=== PATIENT | female | born 1950 | race Caucasian/White ===

== ENCOUNTER 2016-07-22 15:13 | Inpatient (IN) | payer OTHER ==
[~2016-07-22] VITALS: Ht 154.9 cm; Wt 80.7 kg
[~2016-07-22 15:13] MED LIST: AMBIEN10 MG PO; CELEBREX200 MG PO; CEPHALEXIN500 M2 PO; COLACE100 M1 PO; COLACE250 MG PO; FERROUS SULFAT325 MG PO; GLUCOPHAGE1000 MG PO; LACTINEX1 TAB.CHEW PO; LASIX20 MG PO; LIORESAL10 MG PO; MORPHINE SULFAT30 M1 PO; MOTRIN800 MG PO; MS-CONTIN30 MG PO; NEURONTIN400 MG PO; NORCO 10/325 MG1 TAB PO; NUCYNTA ER100 MG PO; OMEPRAZOLE20 MG PO; OMEPRAZOLE40 MG PO; PAMELOR25 M1 PO; PEPCID20 MG PO; SEROQUEL50 MG PO; TEGRETOL200 MG PO; VASOTEC20 MG PO; ZOCOR40 MG PO
--- NOTE | 2016-07-22 15:13 | NUR ---
Patient BIBA ACLS, triaged by RN. Waiting for an available bed.
[2016-07-22 15:18] VITALS: BP 102/75
--- NOTE | 2016-07-22 16:00 | NUR ---
Dr. Haque evaluating patient while still on the ambulance gurney in [place].
[2016-07-22] MEDS ORDERED: NACL 0.9% 1,000 ML IV SCH (16:04)
--- NOTE | 2016-07-22 16:48 | NUR ---
Patient transferred to bed 6. RN evaluating patient at bedside.
--- NOTE | 2016-07-22 16:55 | NUR ---
PT CAME TO ER DUE TO GEN WEAKNESS WITH DIZZINESS WHEN STANDING STARTING THIS MORNING;PT DENIES CP/SOB/N/V/F.PAIN SCALE OF 9/10 DUE TO PAST SURGERY AT THE BACK;HX OF HTN;DM;DEPRESSION;AAOX4;NO ACUTE DISTRESS NOTED;HOB ELEVATED;NEEDS ATTENDED;SAFETY MEASURES DONE;ALL MONITORS IN PLACED.
[2016-07-22] MEDS ORDERED: SODIUM POLYSTYRENE 15 GM/60 ML UDBTL PR ONE (17:30)
[2016-07-22] MEDS ORDERED: DEXTROSE 50% 50 ML SYR IVP ONE (17:30)
[2016-07-22] MEDS ORDERED: FUROSEMIDE 100 MG in DEXTROSE 5% 100 ML IV ONE (17:30)
[2016-07-22] MEDS ORDERED: INSULIN HUMAN REGULAR 100 UNITS/ML 10 ML VIAL IVP ONE (17:30)
[2016-07-22] MEDS ORDERED: CALCIUM CHLORIDE 10% 1,000 MG in NACL 0.9% 100 ML IV ONE (17:30)
[2016-07-22] MEDS ORDERED: FUROSEMIDE 100 MG/10 ML VIAL IVP ONE (17:30)
[2016-07-22] MEDS ORDERED: FUROSEMIDE 100 MG/10 ML VIAL ONE (17:55)
[2016-07-22] MEDS ORDERED: SODIUM BICARBONATE 8.4% 50 MEQ/50 ML VIAL ONE (17:56)
[2016-07-22] MEDS ORDERED: CALCIUM CHLORIDE 10% 100 MG/ML SYR IVP ONE (18:20)
--- NOTE | 2016-07-22 18:20 | NUR ---
IV RT.HAND SWOLLEN/IV DISCONTINUED. PER PATIENT,RT. ARM SWOLLEN FROM PREVIOUS IV INFILTRATION FROM [facility]. ERMD MADE AWARE.
[2016-07-22] MEDS ORDERED: SODIUM BICARBONATE 8.4% PFS 50 MEQ/50 ML SYR IVP ONE (18:22)
--- NOTE | 2016-07-22 18:30 | NUR ---
STILL ATTEMPTING TO START IV LINE,PATIENT HARD STICK
[2016-07-22] MEDS ORDERED: ONDANSETRON 4 MG/2 ML VIAL IVP PRN (18:45)
--- NOTE | 2016-07-22 18:55 | NUR ---
Patient taken to CT scan via gurney by [employer].
[2016-07-22] MEDS ORDERED: DEXTROSE 50% 50 ML SYR IVP PRN (19:05)
[2016-07-22] MEDS ORDERED: INSULIN LISPRO SLIDING SCALE 100 UNITS/ML VIAL SUBQ PRN (19:05)
--- NOTE | 2016-07-22 19:33 | NUR ---
Patient will be admitted to care of DR TUCKER. Admited to TELE. Will go to [id number]. Belongings list completed. Report to LEYDI STEVE.
[2016-07-22] MEDS: SODIUM BICARBONATE 8.4% 100 MEQ in DEXTROSE 5% 1,000 ML IV SCH ×2 (20:10→20:15)
[2016-07-22 20:40] VITALS: BP 143/56
--- NOTE | 2016-07-22 20:40 | NUR ---
Admitted from E.. with chief complaint of GENERALIZED WEAKNESS. A 65 y/o ,Female, Appropriate. ALERT AWAKE ORIENTED X4. INITIAL ASSESSMENT DONE. NO S/S OF RESPIRATORY DISTRESS OR SOB NOTED. C/O BACK PAIN SCALING 7/10. WILL GIVE PRN PAIN MEDICATION ORDERED. SKIN IS INTACT CLEAN DRY AND WARM TO TOUCH. SCAR FROM SURGICAL INCISION NOTED ON THE BACK. PLAN OF CARE REVIEWED TO PT AND VERBALIZED UNDERSTANDING. oriented to call light, bed, phone,television, bathroom, smoking policy, visiting hours, procedures, ID bracelet on. Belongings list checked. CALL LIGHT WITHIN REACH. WILL CONTINUE TO MONITOR.
--- NOTE | 2016-07-22 21:40 | NUR ---
PLAN OF CARE ENDORSED TO ABDIRAHMAN RN AT BEDSIDE FOR CONTINUITY OF CARE.
--- NOTE | 2016-07-22 21:45 | NUR ---
IV ACCESS ON THE LT AC#22 INFILTRATED . DISCONTINUED THEN STARTED A NEW IV ACCESS LT WRIST #22. CLEAR AND PATENT.
[2016-07-22] MEDS: NACL 0.9% 1,000 ML IV SCH (22:00)
[2016-07-22] MEDS: BLOOD GLUCOSE MONITORING 1 DEV DEV FS SCH (22:30)
--- NOTE | 2016-07-22 22:30 | NUR ---
BLOOD SUGAR WAS CHECKED RESULT 70. PT IS AWAKE,ALERT AND ORIENTED. PROVIDED SOME APPLE JUICE AND REQUESTING FOR SOME SANDWICH. WILL CONTINUE TO MONITOR.
[2016-07-22] MEDS: SIMVASTATIN 40 MG TAB PO SCH (22:37)
[2016-07-22] MEDS: QUEtiapine FUMARATE 25 MG TAB PO SCH (22:38)
[2016-07-22] MEDS: FERROUS SULFATE 325 MG TABEC PO SCH (22:38)
[2016-07-22] MEDS: NORTRIPTYLINE 25 MG CAP PO SCH (22:38)
[2016-07-22] MEDS: MORPHINE SULFATE 2 MG/ML SYR IVP PRN (22:49)
--- NOTE | 2016-07-22 23:45 | NUR ---
PT HAD 1/2 SANDWICH AND SOME MORE APPLE JUICE.
[2016-07-23] VITALS (11 sets, daily range): BP systolic 94–116; BP diastolic 48–79
--- NOTE | 2016-07-23 02:00 | NUR ---
SLEEPING WELL AT THIS TIME. NO S/S OF ANY DISCOMFORT NOR PAIN NOTED.
--- NOTE | 2016-07-23 03:00 | NUR ---
PT SAID OK TO RECHECK BLOOD SUGAR AT THIS TIME. RESULT 78. PT HAD SOME APPLE JUICE AND APPLE SAUCE.
--- NOTE | 2016-07-23 04:10 | NUR ---
MAGNESIUM LEVEL 1.4 ,PAGED DR. DE LA ROSA. CALLED BACK WITH ORDER.
[2016-07-23] MEDS ORDERED: MAG SULF 2000 MG/WATER PREMIX 50 ML IV ONE (04:15)
--- NOTE | 2016-07-23 05:43 | NUR ---
@ 0525 BLOOD SUGAR WAS CHECKED RESULT 65. PT IS AWAKE,ALERT AND ORIENTED X4. ASYMPTOMATIC. GIVEN SOME CRACKERS, AND JUICE. WILL RECHECK BLOOD SUGAR AGAIN AFTER 30 MINUTES.
[2016-07-23] MEDS: MORPHINE SULFATE 2 MG/ML SYR IVP PRN ×3 (06:01→18:44)
[2016-07-23] MEDS: BLOOD GLUCOSE MONITORING 1 DEV DEV FS SCH ×4 (06:24→20:42)
--- NOTE | 2016-07-23 06:24 | NUR ---
PT SAID NO MORE PAIN . BLOOD SUGAR WAS RECHECKED RESULT 120.
--- NOTE | 2016-07-23 07:30 | NUR ---
ENDORSED PT IN STABLE CONDITION TO AM NURSE.
--- NOTE | 2016-07-23 07:30 | NUR ---
RECEIVED BEDSIDE REPORT FROM NIGHT NURSE. AOX4, PT RESTING IN BED, ABLE TO VERBALIZE NEEDS. PT REPORTS NO PAIN AT THIS TIME. VAULT ATTENDANT IN PLACE. NO S/S OF CP, SOB OR ACUTE DISTRESS. IV SITE ASYMPTOMATIC, PATENT AND INTACT. IVF INFUSING WELL. REVIEWED AND DISCUSSED PLAN OF CARE WITH PT. PT VERBALIZES UNDERSTANDING. SAFETY MEASURES ENSURED. CALL LIGHT WITHIN REACH. WILL CONTINUE TO MONITOR.
[2016-07-23] MEDS ORDERED: ENALAPRIL 10 MG TAB PO SCH (09:00)
[2016-07-23] MEDS ORDERED: FAMOTIDINE 20 MG TAB PO SCH (09:00)
[2016-07-23] MEDS ORDERED: carBAMazepine 200 MG TAB PO SCH (09:00)
[2016-07-23] MEDS ORDERED: GABAPENTIN 100 MG CAP PO SCH (09:00)
[2016-07-23] MEDS: FUROSEMIDE 20 MG TAB PO SCH (09:00)
[2016-07-23] MEDS: FERROUS SULFATE 325 MG TABEC PO SCH ×2 (09:12→20:42)
[2016-07-23] MEDS: HYDROcodone/APAP 7.5/325 MG 1 TAB PO PRN ×2 (09:12→20:53)
[2016-07-23] MEDS: GABAPENTIN 300 MG CAP PO SCH (09:18)
[2016-07-23] MEDS: FAMOTIDINE 20 MG TAB PO SCH (09:19)
--- NOTE | 2016-07-23 09:21 | NUR ---
HELD VASOTEC AND LASIX DUE TO LOW BP PER MD. ADMINISTERED REMAINING MEDICATIONS WITH EDUCATION. PT VERBALIZES UNDERSTANDING. PT TOLERATED WELL. PT REPORTS PAIN ON BACK. SEE PAIN ASSESSMENT. MEDICATED ORDERED. ASSISTED PT WITH ADLS. PT ASSISTED TO CHANGE POSITIONS SLOWLY. SAFETY MEASURES ENSURED. CALL LIGHT WITHIN REACH. WILL CONTINUE TO MONITOR.
[2016-07-23] MEDS ORDERED: BACLOFEN 10 MG TAB PO SCH (10:05)
[2016-07-23] MEDS ORDERED: BACLOFEN 10 MG TAB PO PRN (10:05)
[2016-07-23] MEDS ORDERED: MORPHINE TAB ER 15 MG TABER PO SCH (10:30)
--- NOTE | 2016-07-23 10:50 | NUR ---
PT C/O PERSISTENT BACK PAIN. SEE PAIN ASSESSMENT. PLACED ICE PACK ON BACK AND PT REPOSITIONED. BACLOFEN ADMINISTERED ORDERED. MS CONTIN HELD DUE TO LOW BP 88/52. PT ASYMPTOMATIC, NO S/S OF ACUTE DISTRESS. WILL CONTINUE TO MONITOR PAIN AND BP.
[2016-07-23] MEDS: NACL 0.9% 1,000 ML IV SCH (11:21)
--- NOTE | 2016-07-23 12:10 | NUR ---
PT RESTING IN BED. ORTHOSTATIC VITAL SIGNS TAKEN. SEE VITAL SIGNS. PT TOLERATED WELL. NO S/S OF ACUTE DISTRESS. ASSISTED PT TO CHAIR, PT EATING. SAFETY MEASURES ENSURED. CALL LIGHT WITHIN REACH. WILL CONTINUE TO MONITOR.
--- NOTE | 2016-07-23 16:00 | NUR ---
PT RESTING IN BED. ALL NEEDS MET. SAFETY MEASURES IN PLACE. WILL CONTINUE TO MONITOR.
--- NOTE | 2016-07-23 19:23 | NUR ---
ENDORSED PLAN OF CARE TO NIGHT NURSE. CONDITION STABLE.
--- NOTE | 2016-07-23 19:30 | NUR ---
RECEIVED PT IN STABLE CONDITION FROM AM NURSE. AWAKE,ALERT AND ORIENTED X4. WITH NO ACUTE DISTRESS NOTED. ON TELE MONITOR. NO C/O PAIN AT THIS TIME. HAS IVF INFUSING WELL ON THE LT WRIST #22. CLEAR AND PATENT. HAS BSC , INSTRUCTED PT TO CALL FOR ASSISTANCE TO GET UP. PLAN OF CARE DISCUSSED AND VERBALIZED UNDERSTANDING. BED ON LOW POSITION. SIDE RIALS UP X2. CALL LIGHT PLACED WITHIN EASY REACH. WILL CONTINUE TO MONITOR.
--- NOTE | 2016-07-23 20:42 | NUR ---
BLOOD SUGAR WAS CHECKED RESULT 95. PROVIDED WITH SOME JUICE AND CRACKERS. WILL CONTINUE TO MONITOR.
[2016-07-23] MEDS: MORPHINE TAB ER 15 MG TABER PO SCH (20:43)
[2016-07-23] MEDS: NORTRIPTYLINE 25 MG CAP PO SCH (20:43)
[2016-07-23] MEDS: QUEtiapine FUMARATE 25 MG TAB PO SCH (20:44)
[2016-07-23] MEDS: SIMVASTATIN 40 MG TAB PO SCH (20:44)
--- NOTE | 2016-07-23 22:00 | NUR ---
SLEEPING AT THIS TIME. NO S/S OF ANY DISCOMFORT NOTED.
[2016-07-24] VITALS (8 sets, daily range): BP systolic 103–133; BP diastolic 59–75
--- NOTE | 2016-07-24 00:30 | NUR ---
MADE ROUNDS . SLEEPING WELL WITH NO S/S OF ANY DISCOMFORT NOR PAIN NOTED.
[2016-07-24] MEDS: NACL 0.9% 1,000 ML IV SCH ×3 (02:15→20:41)
[2016-07-24] MEDS: MORPHINE SULFATE 2 MG/ML SYR IVP PRN ×5 (02:23→20:55)
--- NOTE | 2016-07-24 02:23 | NUR ---
AWAKE, C/O BACK PAIN . MEDICATED ORDERED. WILL CONTINUE TO MONITOR.
--- NOTE | 2016-07-24 04:10 | NUR ---
PT REFUSED TO GET UP FOR SITING ANG STANDING UP VITAL SIGNS.
--- NOTE | 2016-07-24 04:20 | NUR ---
HAS BEEN ASSISTED TO BATHROOM. VOIDED WELL . C/O PAIN . WILL MEDICATE ORDERED.
[2016-07-24] MEDS: HYDROcodone/APAP 7.5/325 MG 1 TAB PO PRN ×3 (04:29→23:44)
[2016-07-24] MEDS: BLOOD GLUCOSE MONITORING 1 DEV DEV FS SCH ×4 (06:28→21:01)
--- NOTE | 2016-07-24 07:35 | NUR ---
ENDORSED PT IN STABLE CONDITION TO AM NURSE FOR CONTINUITY OF CARE.
--- NOTE | 2016-07-24 07:36 | NUR ---
ALERT AND ORIENTED X4, NO SIGNS OF ACUTE DISTRESS, BREATHING EVENLY AND UNLABORED ON ROOM AIR, SKIN WARM, DRY AND INTACT, ABDOMEN SOFT BOWEL SOUNDS PRESENT IN ALL 4 QUADRANTS, BOWEL AND BLADDER CONTINENCE, AMBULATORY WITH STANDBY ASSIST, PATIENT VERBALIZED PAIN IS BETTER WAS MEDICATED BY ROLL SHEETING CUTTER RN, IV PATENT WITH NO REDNESS, BED IN LOW POSITION WITH BILATERAL HALF SIDE RAILS UP, CALL LIGHT WITHIN REACH.
--- NOTE | 2016-07-24 07:59 | NUR ---
PATIENT HAS BEEN SCREENED AND CATEGORIZED MODERATE NUTRITION RISK. PATIENT WILL BE SEEN WITHIN 3-5 DAYS OF ADMISSION. 07/25/16-07/27/[address]
[2016-07-24] MEDS ORDERED: MAG SULF 2000 MG/WATER PREMIX 50 ML IV SCH (08:00)
[2016-07-24] MEDS: ECOTRIN 81 MG TABEC PO SCH (08:50)
[2016-07-24] MEDS: FERROUS SULFATE 325 MG TABEC PO SCH ×2 (08:50→20:56)
[2016-07-24] MEDS: MORPHINE TAB ER 15 MG TABER PO SCH ×2 (08:51→20:56)
[2016-07-24] MEDS: GABAPENTIN 300 MG CAP PO SCH (08:51)
[2016-07-24] MEDS: FAMOTIDINE 20 MG TAB PO SCH (08:52)
[2016-07-24] MEDS: FUROSEMIDE 20 MG TAB PO SCH (08:56)
[2016-07-24] MEDS ORDERED: MULTIVITAMIN 1 TAB PO SCH (09:11)
[2016-07-24] MEDS ORDERED: MAGNESIUM OXIDE 400 MG TAB PO SCH ×2 (10:00→14:00)
--- NOTE | 2016-07-24 16:06 | NUR ---
WAS SEEN BY DR. SNEED FOR PSYCH CONSULT. NEW ORDERS RECEIVED. NOTED AND CARRIED OUT.
--- NOTE | 2016-07-24 17:47 | NUR ---
NEW LAB ORDERS RECEIVED FROM DR. ARNETT. NOTED AND CARRIED OUT.
--- NOTE | 2016-07-24 19:20 | NUR ---
RECEIVED REPORT FROM MORNING SHIFT NURSE AT BEDSIDE, PT IS AAOX4. DEPRESSED, NO SOB/DISTRESS NOTED, BREATHING EVEN AND UNLABORED, CLEAR LUNG SOUNDS, ON RA. DENIES ANY CHEST PAIN, ON TELE MONITOR WITH SR. SOFT ABD WITH POSITIVE BOWEL SOUNDS TO 4 QUADRANTS. C/O PAIN TO LOWER BACK, HEATING PAD IN USE. AFEBRILE, SKIN INTACT, WARM AND DRY IN TOUCH. IV SITE TO RIGHT WRIST 20GA RUNNING WITH NS. ABLE TO MOVE ALL EXTREMITIES, GENERALIZED WEAKNESS NOTED, ABLE AMBULATORY WITH MINIMUM ASSIST. CONTINENT WITH B&B'S. VSS. EXPLAINED PLAN OF CARE TO PATIENT, SAFETY MEASURES MAINTAINED, CALL LIGHT WITHIN REACH, WILL CONTINUE TO MONITOR.
--- NOTE | 2016-07-24 19:20 | NUR ---
PT ALERT AND RESPONSIVE NO SIGNS OF ACUTE DISTRESS. ENDORSED TO ASSIGNED GRAPE PICKER RN FOR CONTINUITY OF CARE.
[2016-07-24] MEDS: QUEtiapine FUMARATE 25 MG TAB PO SCH (20:55)
[2016-07-24] MEDS: NORTRIPTYLINE 25 MG CAP PO SCH (20:55)
[2016-07-24] MEDS: SIMVASTATIN 40 MG TAB PO SCH (20:56)
--- NOTE | 2016-07-24 21:00 | NUR ---
SCHEDULED MEDICATION GIVEN, ACCU CHECK WITH 138MG/DL, NO INSULIN COVERAGE AT THIS TIME.
[2016-07-25] VITALS: BP 95/49
--- NOTE | 2016-07-25 | NUR ---
PT C/O SEVERE LOWER BACK PAIN, RESTLESSNESS, EDUCATED AND MEDICATED. VSS.
[2016-07-25] MEDS: MORPHINE SULFATE 2 MG/ML SYR IVP PRN ×3 (01:30→11:39)
[2016-07-25] MEDS: NACL 0.9% 1,000 ML IV SCH (01:31)
[2016-07-25 04:00] VITALS: BP 108/60
--- NOTE | 2016-07-25 04:00 | NUR ---
NO CHANGE OF CONDITION AT THIS TIME, VSS.
[2016-07-25] MEDS: BLOOD GLUCOSE MONITORING 1 DEV DEV FS SCH ×2 (06:36→11:38)
--- NOTE | 2016-07-25 07:05 | NUR ---
REPORT GIVEN TO MORNING SHIFT NURSE FOR CONTINUE OF CARE, PT IS IN STABLE CONDITION AT THIS TIME.
--- NOTE | 2016-07-25 07:06 | NUR ---
ALERT AND ORIENTED X4, NO SIGNS OF ACUTE DISTRESS, BREATHING EVEN AND UNLABORED BILATERALLY, ABDOMEN SOFT WITH BOWEL SOUNDS PRESENT IN ALL 4 QUADRANTS, SKIN WARM, DRY AND INTACT, BOWEL AND BLADDER CONTINENCE, AMBULATES WITH STANDBY ASSIST, COMPLAINS OF PAIN / DOESN'T WANT PAIN MEDICATION AT THIS TIME, BED IN LOW POSITION WITH BILATERAL HALF SIDE RAILS UP, CALL LIGHT WITHIN REACH.
[2016-07-25 07:44] VITALS: BP 124/61
[2016-07-25] MEDS ORDERED: MULTIVITAMIN 1 TAB PO SCH (09:00)
[2016-07-25] MEDS: FUROSEMIDE 20 MG TAB PO SCH (09:00)
[2016-07-25] MEDS: FAMOTIDINE 20 MG TAB PO SCH (09:08)
[2016-07-25] MEDS: GABAPENTIN 300 MG CAP PO SCH (09:08)
[2016-07-25] MEDS: MORPHINE TAB ER 15 MG TABER PO SCH (09:09)
[2016-07-25] MEDS: FERROUS SULFATE 325 MG TABEC PO SCH (09:09)
[2016-07-25] MEDS: HYDROcodone/APAP 7.5/325 MG 1 TAB PO PRN (09:10)
[2016-07-25] MEDS: ECOTRIN 81 MG TABEC PO SCH (09:10)
--- NOTE | 2016-07-25 09:27 | NUR ---
GAVE MAG BARBERER ORDERED PER DR SANDOVAL.
[2016-07-25] MEDS ORDERED: MAG SULF 2000 MG/WATER PREMIX 50 ML IV SCH (09:30)
[2016-07-25] MEDS ORDERED: LOPRESSOR25 MG PO (10:50)
[2016-07-25 12:00] VITALS: BP 149/71
--- NOTE | 2016-07-25 13:20 | NUR ---
PT AWAKE, ALERT AND ORIENTED X4, NO SIGNS OF ACUTE DISTRESS, PAIN LEVEL 1/10 ON LOWER BACK, AUGUST D/C HOME ORDERED. EDUCATED TO FOLLOW UP WITH PCP WITHIN 1 WEEK, PATIENT VERBALIZED UNDERSTANDING, WILL CONTINUE HOME MEDICATIONS ORDERED. WRIST BAND, TELE LEADS AND IV REMOVED. PICKED UP BY FRIEND. PERSONAL BELONGINGS WITH PATIENT UPON DISCHARGE, WHEELED TO FRONT LOBBY WILL GO HOME VIA PRIVATE AUTO.
== END 2016-07-25 13:20 | disposition home or self-care (01) | DRG 682 ==
LOC: MED 15:13 → MTU 18:50
PROVIDERS: ADMIT Student in an Organized Health Care Education/Training Program; ATTEND Student in an Organized Health Care Education/Training Program
DX: N17.0 Acute kidney failure with tubular necrosis (principal); G93.41 Metabolic encephalopathy; I50.43 Acute on chronic combined systolic (congestive) and diastolic (congestive) heart failure; E44.0 Moderate protein-calorie malnutrition; F33.0 Major depressive disorder, recurrent, mild; G90.9 Disorder of the autonomic nervous system, unspecified; R00.1 Bradycardia, unspecified; E87.5 Hyperkalemia; E11.65 Type 2 diabetes mellitus with hyperglycemia; E11.51 Type 2 diabetes mellitus with diabetic peripheral angiopathy without gangrene; E78.5 Hyperlipidemia, unspecified; E83.42 Hypomagnesemia; E03.9 Hypothyroidism, unspecified; E66.9 Obesity, unspecified; K21.9 Gastro-esophageal reflux disease without esophagitis; D64.9 Anemia, unspecified; I11.0 Hypertensive heart disease with heart failure; G89.29 Other chronic pain; M54.9 Dorsalgia, unspecified; Z82.3 Family history of stroke; Z71.3 Dietary counseling and surveillance; Z68.33 Body mass index [BMI] 33.0-33.9, adult; Z79.899 Other long term (current) drug therapy; Z83.3 Family history of diabetes mellitus

== ENCOUNTER 2016-09-15 17:48 | Emergency (ER) | payer OTHER ==
[~2016-09-15 17:48] MED LIST changes: -AMBIEN10 MG PO; -CELEBREX200 MG PO; -CEPHALEXIN500 M2 PO; -COLACE100 M1 PO; -COLACE250 MG PO; -FERROUS SULFAT325 MG PO; +FURO-572 PO; -GLUCOPHAGE1000 MG PO; +HYDR-4452 PO; -LACTINEX1 TAB.CHEW PO; -LASIX20 MG PO; -LIORESAL10 MG PO; +METF1000 PO; +METO25TA PO; +MORP30TA PO; -MORPHINE SULFAT30 M1 PO; -MOTRIN800 MG PO; -MS-CONTIN30 MG PO; +MSCON30 PO; -NEURONTIN400 MG PO; -NORCO 10/325 MG1 TAB PO; -NUCYNTA ER100 MG PO; +OMEP20EC6 PO; -OMEPRAZOLE20 MG PO; -OMEPRAZOLE40 MG PO; +PAM25 PO; -PAMELOR25 M1 PO; -PEPCID20 MG PO; +QUET50TA PO; -SEROQUEL50 MG PO; +SIMV40TA1 PO; -TEGRETOL200 MG PO; -VASOTEC20 MG PO; -ZOCOR40 MG PO
== END 2016-09-15 18:08 | disposition left against medical advice (07) ==
LOC: MED 17:48
DX: M54.9 Dorsalgia, unspecified (principal); Z53.21 Procedure and treatment not carried out due to patient leaving prior to being seen by health care provider

== ENCOUNTER 2016-09-17 19:48 | Emergency (ER) | payer OTHER ==
[~2016-09-17] VITALS: Ht 154.9 cm; Wt 72.6 kg
[2016-09-17 19:54] VITALS: BP 147/70
--- NOTE | 2016-09-17 20:17 | NUR ---
PT TAKEN TO BED 7
--- NOTE | 2016-09-17 20:50 | NUR ---
66Y/F PATIENT PRESENTS TO ED WITH C/O LOWER BACK PAIN . PT STATES HAVING CHRONIC BACK PAIN, HX. SCROLIOSIS, S/O LUMBAR FUSION, ON PERCUCET, TODAY PAIN INCREASES, HX. DM, HTN UNDER CONTAOLL. DENIES N/V/D; SKIN IS PINK/WARM/DRY; AAOX4 WITH EVEN AND STEADY GAIT USING WALKER; LUNGS CLEAR BL; HR EVEN AND REGULAR; PT DENIES ANY FEVER, CP, SOB, OR COUGH AT THIS TIME; PATIENT STATES PAIN OF 10/10 AT THIS TIME; VSS; PATIENT POSITIONED FOR COMFORT; HOB ELEVATED; BEDRAILS UP X2; BED DOWN. ER MD MADE AWARE OF PT STATUS.
--- NOTE | 2016-09-17 21:10 | NUR ---
Dr. Cramer evaluating patient at bedside.
[2016-09-17] MEDS ORDERED: KETOROLAC 60 MG/2 ML VIAL IM ONE (21:20)
[2016-09-17] MEDS ORDERED: HYDROmorphone 1 MG/ML AMP IVP ONE (21:20)
[2016-09-17 22:10] VITALS: BP 143/77
--- NOTE | 2016-09-17 22:10 | NUR ---
Patient discharged with v/s stable. Written and verbal after care instructions given and explained. Patient alert, oriented and verbalized understanding of instructions. Ambulatory with steady gait. All questions addressed prior to discharge. ID band removed. Patient advised to follow up with PMD. Rx of FLEXARIL 10 MG given. Patient educated on indication of medication including possible reaction and side effects. Opportunity to ask questions provided and answered.
== END 2016-09-17 22:10 | disposition home or self-care (01) ==
LOC: MED 19:48
DX: M54.5 Low back pain (principal); I10 Essential (primary) hypertension; G89.29 Other chronic pain
CPT/HCPCS: 96372; 96374; 99284; J1170; J1885

== ENCOUNTER 2017-03-27 14:33 | Emergency (ER) | payer OTHER ==
[~2017-03-27] VITALS: Ht 149.9 cm; Wt 69.9 kg
[~2017-03-27 14:33] MED LIST changes: +ACET-787 PO; -HYDR-4452 PO
[2017-03-27 14:40] VITALS: BP 132/86
--- NOTE | 2017-03-27 14:50 | NUR ---
66/M BIB SELF C/O PRODUCTIVE COUGH X 2 DAY, WORSE TODAY WITH "DIFFICULTLY BREATHING; PT ALSO REPORTS OF MID LOWER BACK PAIN X 1 MONTH. HX--DM, DEPRESSION, HTN, HYPERLIPIDEMIA, CHRONIC LOWER BACK PAIN.SKIN IS PINK/WARM/DRY; AAOX4 WITH EVEN AND UNSTEADY GAIT; LUNGS CLEAR BL; PATIENT STATES PAIN OF 10/10 AT THIS TIME; PATIENT POSITIONED FOR COMFORT; HOB ELEVATED; BEDRAILS UP X2; BED DOWN. ER MD MADE AWARE OF PT STATUS.
[2017-03-27 15:46] VITALS: BP 116/50
--- NOTE | 2017-03-27 15:46 | NUR ---
Patient discharged with v/s stable. Written and verbal after care instructions given and explained. Patient alert, oriented and verbalized understanding of instructions. Ambulatory with steady gait. All questions addressed prior to discharge. ID band removed. Patient advised to follow up with PMD. Rx of AZITHROMYCIN, PREDNISONE & NORCO given. Patient educated on indication of medication including possible reaction and side effects. Opportunity to ask questions provided and answered.
== END 2017-03-27 15:46 | disposition home or self-care (01) ==
LOC: MED 14:33
DX: M54.5 Low back pain (principal); R05 Cough; R06.02 Shortness of breath; E11.9 Type 2 diabetes mellitus without complications; I10 Essential (primary) hypertension; Z79.899 Other long term (current) drug therapy; Z79.84 Long term (current) use of oral hypoglycemic drugs
CPT/HCPCS: 81002; 99283

== ENCOUNTER 2017-04-21 17:27 | Emergency (ER) | payer OTHER ==
[~2017-04-21] VITALS: Ht 154.9 cm; Wt 68.7 kg
[2017-04-21 17:41] VITALS: BP 111/63
[2017-04-21] MEDS ORDERED: DEXT 5% / NACL 0.45% 500 ML IV ONE (17:55)
[2017-04-21] MEDS ORDERED: HYDROmorphone PFS 2 MG/ML SYR IVP ONE (17:55)
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
--- NOTE | 2017-04-21 18:09 | NUR ---
WASTED 1 MG HYDROMORPHONE HCL
--- NOTE | 2017-04-21 19:13 | NUR ---
REPORT GIVEN TO BENITO FOR CONTINUATION OF CARE
[2017-04-21 19:50] VITALS: BP 121/55
--- NOTE | 2017-04-21 19:50 | NUR ---
Patient discharged with v/s stable. Written and verbal after care instructions given and explained. Patient alert, oriented and verbalized understanding of instructions. Ambulatory with steady gait. All questions addressed prior to discharge. ID band removed. Patient advised to follow up with PMD. Rx of [place] given. Patient educated on indication of medication including possible reaction and side effects. Opportunity to ask questions provided and answered.
== END 2017-04-21 19:50 | disposition home or self-care (01) ==
LOC: MED 17:27
DX: G89.29 Other chronic pain (principal); M54.9 Dorsalgia, unspecified; E16.2 Hypoglycemia, unspecified; I10 Essential (primary) hypertension
CPT/HCPCS: 82948; 96361; 96374; 99285; J1170

== ENCOUNTER 2017-04-25 15:06 | Emergency (ER) | payer OTHER ==
[~2017-04-25] VITALS: Ht 154.9 cm; Wt 68.5 kg
[2017-04-25 15:18] VITALS: BP 123/73
--- NOTE | 2017-04-25 16:50 | NUR ---
PATIENT PRESENTS TO ED WITH C/O CHRONIC BACK PAIN; WAS RX PERCOCET AND STATES THAT SHE "IT'S MAKING ME SICK WITH DIARRHEA AND VOMITING." PT STATES "I USED TO TAKE NORCO AND THEY GAVE ME SOME OF THOSE AND THAT SEEM TO HELP." HX OF CHRONIC BACK PAIN, DM, HTN, HIGH CHOLESTEROL, DEPRESSION .DENIES N/V/D; SKIN IS PINK/WARM/DRY; AAOX4 WITH EVEN AND STEADY GAIT; LUNGS CLEAR BL; HR EVEN AND REGULAR; PT DENIES ANY FEVER, CP, SOB, OR COUGH AT THIS TIME; PATIENT STATES PAIN OF 9/10 AT THIS TIME;PATIENT POSITIONED FOR COMFORT; HOB ELEVATED; BEDRAILS UP X2; BED DOWN. ER MD MADE AWARE OF PT STATUS.
--- NOTE | 2017-04-25 17:42 | NUR ---
DR CACERES AT BEDSIDE.
[2017-04-25] MEDS ORDERED: KETOROLAC 60 MG/2 ML VIAL IM ONE (17:50)
--- NOTE | 2017-04-25 18:10 | NUR ---
PT REFUSED TO TAKE TORADOL 60 MG;PT STATES "THAT DON'T HELP ME"CAN YOU ASK THE DR IF HE CAN GIVE STRONGER PAIN MEDICATION";TALKED TO PT;ASKED IF SHE CAN GIVE IT A TRY FOR MEDICINE TO TAKE EFFECT;BUT PT STILL REFUSING MEDICINE"ER NOTIFIED;
--- NOTE | 2017-04-25 18:52 | NUR ---
PT REFUSED TO SIGN DISCHARGE PAPERS;PT APPEARS TO BE UPSET"PT STATES I'LL WAIT FOR ANOTHER DR"I WANNA TALKED TO THE RECLAMATION KETTLE TENDER OF THIS HOSPITAL"THAT MEDICINE DID NOT HELP ME"CHARGE NURSE NOTIFIED;PT REFUSED TO TAKE HER VS.
[2017-04-25 18:56] VITALS: BP 123/73
--- NOTE | 2017-04-25 18:56 | NUR ---
Patient discharged with v/s stable. Written and verbal after care instructions given and explained. Patient alert, oriented and verbalized understanding of instructions. Carried with steady gait. All questions addressed prior to discharge. ID band removed. Patient advised to follow up with PMD. Rx of LOMOTIL AND ZOFRAN given. Patient educated on indication of medication including possible reaction and side effects. Opportunity to ask questions provided and answered.
== END 2017-04-25 18:56 | disposition home or self-care (01) ==
LOC: MED 15:06
DX: G89.29 Other chronic pain (principal); M54.9 Dorsalgia, unspecified; E11.9 Type 2 diabetes mellitus without complications; I10 Essential (primary) hypertension; E78.00 Pure hypercholesterolemia, unspecified
CPT/HCPCS: 82948; 96372; 99283; J1885

== ENCOUNTER 2017-05-22 21:24 | Emergency (ER) | payer OTHER ==
[~2017-05-22] VITALS: Ht 154.9 cm; Wt 69.4 kg
[~2017-05-22 21:24] MED LIST changes: -FURO-572 PO; -MORP30TA PO; -MSCON30 PO
[2017-05-22 21:25] VITALS: BP 143/79
--- NOTE | 2017-05-22 22:13 | NUR ---
Pt came to ED c/o lower left back pain that radiates down lower left back. Pt states chronic pain but at the moment pain is unbarable. Resting and stting makes the pain less. Pt states numbess to left leg. Cap refill <3sec. Pulses palpable. VSS. ER MD aware. Continue to monitor
--- NOTE | 2017-05-22 22:13 | NUR ---
To bed 4.
[2017-05-22] MEDS: HYDROmorphone PFS 2 MG/ML SYR IM ONE (23:10)
[2017-05-22 23:29] VITALS: BP 143/79
--- NOTE | 2017-05-22 23:29 | NUR ---
Patient discharged with v/s stable with pain decreased. Written and verbal after care instructions given and explained. Patient alert, oriented and verbalized understanding of instructions. Wheel Chair Assisted to vehicle. Gait steady, where Pt typically ambulates with walker at home. All questions addressed prior to discharge. ID band removed. Patient advised to follow up with PMD. Rx of [place], Zofran given. Patient educated on indication of medication including possible reaction and side effects. Opportunity to ask questions provided and answered.
== END 2017-05-22 23:29 | disposition home or self-care (01) ==
LOC: MED 21:24
DX: M54.40 Lumbago with sciatica, unspecified side (principal); I10 Essential (primary) hypertension; E11.9 Type 2 diabetes mellitus without complications; Z79.899 Other long term (current) drug therapy; Z79.84 Long term (current) use of oral hypoglycemic drugs
CPT/HCPCS: 96372; 99283; J1170

== ENCOUNTER 2017-08-04 02:11 | Emergency (ER) | payer OTHER ==
[~2017-08-04] VITALS: Ht 154.9 cm; Wt 69.4 kg
[2017-08-04 02:15] VITALS: BP 152/70
--- NOTE | 2017-08-04 03:35 | NUR ---
PATIENT TO ER BED 4.
--- NOTE | 2017-08-04 03:40 | NUR ---
PATIENT PRESENTS TO ED WITH LOWER BACK PAIN AFTER FALL DOWN STAIRS AT HOME. C/O LOWER BACK PAIN 8/10, BURNING/ACHE. PT DENIES N/V/D; SKIN IS PINK/WARM/DRY; AAOX4 WITH EVEN AND STEADY GAIT; LUNGS CLEAR BL; HR EVEN AND REGULAR; PT DENIES ANY FEVER, CP, SOB, OR COUGH AT THIS TIME; PATIENT STATES PAIN OF 8/10 AT THIS TIME; VSS; PATIENT POSITIONED FOR COMFORT; HOB ELEVATED; BEDRAILS UP X2; BED DOWN. ER MD MADE AWARE OF PT STATUS. CONTINUE TO MONITOR.
[2017-08-04] MEDS ORDERED: MORPHINE SULFATE 4 MG/ML SYR IM ONE (04:15)
[2017-08-04 05:19] VITALS: BP 152/70
--- NOTE | 2017-08-04 05:19 | NUR ---
Patient discharged with v/s stable without pain. Written and verbal after care instructions given and explained. Patient alert, oriented and verbalized understanding of instructions. Wheel Chair Assisted with to car. All questions addressed prior to discharge. ID band removed. Patient advised to follow up with PMD. Rx of [place] given. Patient educated on indication of medication including possible reaction and side effects. Opportunity to ask questions provided and answered.
== END 2017-08-04 05:19 | disposition home or self-care (01) ==
LOC: MED 02:11
DX: M54.5 Low back pain (principal); W10.8XXA Fall (on) (from) other stairs and steps, initial encounter; Y93.89 Activity, other specified; Y92.89 Other specified places as the place of occurrence of the external cause; Y99.8 Other external cause status; I10 Essential (primary) hypertension; E11.9 Type 2 diabetes mellitus without complications; Z90.89 Acquired absence of other organs
CPT/HCPCS: 72131; 96372; 99284; J2270